=== PATIENT | male | born 1950 | race Caucasian/White ===

== ENCOUNTER 2017-04-13 15:13 | Observation (INO) | payer OTHER ==
[~2017-04-13] VITALS: Ht 180.3 cm; Wt 104.3 kg
[2017-04-13 15:31] LABS: HEMOGLOBIN 16.3 g/dL (14.1-18.0); LYMPH # 1.4 K/mm3 (0.7-4.5); LYMPH % 20.9 % (10-50)
[2017-04-13 15:54] LABS: BUN 18 mg/dL (7-18)
[2017-04-13 15:56] LABS: GFR (ESTIMATED) 67 ML/MIN (>60)
[2017-04-13 17:17] VITALS: BP 148/91
[2017-04-13] MEDS ORDERED: AMLODIPINE10 MG PO (18:11)
[2017-04-13] MEDS ORDERED: METOPROLOL TAR100 MG PO (18:12)
[2017-04-13] MEDS ORDERED: LOSARTAN POTAS100 MG PO (18:13)
[2017-04-13] MEDS ORDERED: OMEPRAZOLE20 MG PO (18:14)
[2017-04-13 18:33] VITALS: BP 148/91
[2017-04-13 20:21] VITALS: BP 144/90
[2017-04-13 20:36] VITALS: BP 144/90
--- NOTE | 2017-04-13 20:51 | HISTORY AND PHYSICAL REPORT ---
Demographics: Admit date: 04/13/17 Chief complaint: chest pressure and shortness of breath PRIMARY DIAGNOSIS: CHEST PAIN Allergies: Coded Allergies: Penicillins (I-RASH 04/13/17) History of present illness: History of present illness: 66 year old male with a history of HTN and GERD was seen today in internal medicine clinic for a 2 week history of lower chest/epigastric pressure and shortness of breath. Patient reports symptoms were intermittent until one week ago. Since that time he has had constant pressure in his epigastric region that is accompanied by shortness of breath. He further reports it feels like "my throat closes off sometimes." He denies any exertional correlation. He walks two miles every day and spends 30 minutes each night riding a bike. Symptoms do not increase during his exercise. He states acid reflux has been well controlled on medication that he has taken for over 20 years. He denies any GI symptoms. He can not identify any aggravating or alleviating factors. H/O cholecystecomy several years ago. Previous smoker, quit 15 years ago. Patient was direct admitted by Dr. Dupree to acute care with telemetry for cardiology consult and further evaluation. Past medical history: Family HX Diabetes No CAD No Hypertension Yes Hyperlipidemia No Cancer Yes TB No Immunization HX DT/Tetanus 1-4 Years Ago Flu 2012-FSN Pneumonia Received In Past Rec'd 2014 TB Test in last year No General Angina: No DC: No Hypertension? Yes Hyperlipidemia? No CHF? No COPD? No Asthma? No Hernia? No CVA? No Seizures? No Diabetes? No UTI? No Stones? No GB Disease: Yes Nephritic Syndrome? No Hepatitis? No Sickle Cell Disease? No Cataracts? No Glaucoma? No MRSA? No HIV? No TB? No Cancer? No Past Surgical HX Previous Surgery?Y GALLBLADDER Back Surgery WISDOM TEETH T&A RT.KNEE MENISCUS REPAIR CATARACT SURGERY Current home meds: Reported Medications Amlodipine Besylate (Amlodipine) 10 MG PO DAILY Metoprolol Tartrate (Metoprolol 100MG) 100 MG PO BID Losartan Potassium (Losartan 100MG) 100 MG PO DAILY Omeprazole (Omeprazole 20MG) 20 MG PO DAILY Social Hx: Smoking HX Are you/the child exposed to second-hand smoke: No Alcohol Alcohol: No Hx of Drug Use Drug Use? No Patient's support system is good Review of systems: Constitutional No: no symptoms reported. Eyes No: no symptoms reported. Ears, Nose, Mouth, Throat No no symptoms reported Respiratory No: no symptoms reported. Cardiovascular see HPI Gastrointestinal/Abdominal see HPI Genitourinary No: no symptoms reported. Musculoskeletal No: no symptoms reported. Skin No: no symptoms reported. Neurological No: see HPI, no symptoms reported, headache, numbness, tingling, tremors, weakness, parasthesia, seizure disorder. Psychiatric No: no symptoms reported. Exam: Lab data for last 24 hours: Laboratory Tests 04/13/171954: Creatine Kinase 143, CK-MB (CK-2) Rel Index 2.9, CK and CKMB Interp 4.2 H, Troponin I < 0.02 04/13/17 1515: Sodium 140, Potassium 3.9, Chloride 107, Carbon Dioxide 23, BUN 18, Creatinine 1.1, Estimated GFR (MDRD) 67, Glucose 167 H, Calcium 9.1, Creatine Kinase 177, CK-MB (CK-2) Rel Index 3.1, CK and CKMB Interp 5.4 H, Troponin I < 0.02, WBC 6.5, RBC 5.12, Hgb 16.3, Hct 47.1, MCV 92.0, RDW 13.0, Plt Count 199, MPV 7.5, Gran % 70.6, Gran # 4.6, Lymphocytes % 20.9, Monocytes % 4.1, Eosinophils % 3.5, Basophils % 0.8, Lymphocytes # 1.4, Monocytes # 0.3, Eosinophils # 0.2, Basophils # 0.1, PUBS MCHC 34.7, MCH 31.9 H Admission vital signs: 1ST Vital Signs Result Date Time Pulse Ox 95 04/13 1717 B/P 148/91 04/13 1717 O2 Delivery ROOM AIR 04/13 1717 Temp 97.5 04/13 1717 Pulse 94 04/13 1717 Resp 18 04/13 1717 Exam General appearance: normal appearance, alert, active, awake Eyes: anicteric ENT: mucous membranes moist Neck: normal inspection, non-tender, no carotid bruit, no JVD Cardiovascular: regular rate & rhythm, no murmur, normal peripheral pulses, trace LE edema Respiratory: aerating well, clear to auscultation, chest non-tender, good air movement ABD: non-distended, normal bowel sounds, no rebound, soft, no tenderness, no guarding, no organomegaly Genitourinary: normal voiding & quantity, no dysuria Extremities: moves all Musculoskeletal: equal muscle strength Skin: dry, intact, normal color Neuro: bar gauger and lubricator tender II-XII nml as tested, intact, no deficit, normal mood/affect, oriented, speech clear Plan: Problem List 1. Chest pressure 2. Shortness of breath 3. Hyperglycemia Plan: Admit to acute care with telemetry. Serial enzymes and EKG's. Consult cardiology. Glucose noted at 167, will check fasting lipid and HA1C in the am. at 8386
[2017-04-13 23:47] VITALS: BP 154/83
[2017-04-14 04:00] VITALS: BP 113/69
--- NOTE | 2017-04-14 05:43 | RADIOLOGY REPORT PS360 ---
CHEST(2 VIEWS-NOT PORTABLE) HISTORY: Sternal or substernal pain, pain at the level of the xiphoid CHEST/EPIGASTRIC PAIN ,SOA ORDERING PHYSICIAN: Pedro Johnson MD PATIENT AGE: 66 years COMPARISON: 04/14/2013 FINDINGS: Unremarkable cardiovascular structures. No lobar consolidation or collapse. Mild hyperinflation. Increased density is present over the left first rib anteriorly probably due to bony hypertrophy having a similar appearance on 04/14/2013. Degenerative changes are present in the thoracic spine. This xyphoid and sternum are not well demonstrated on this exam. IMPRESSION: 1. No acute finding. 2. Thoracic spondylosis
--- NOTE | 2017-04-14 07:21 | PHARMACY CLINIC NOTE ---
See Addendum Patient Demographics Patient Demographics Admission date: 04/13/17 Date: 04/14/17 Time: 720 Allergies Coded Allergies: Penicillins (I-RASH 04/13/17) HEIGHT- FT: 5 IN: 11.00 K.328 VTE General Information Labs: Laboratory Tests 04/13 1515 Hematology Hgb (14.1 - 18.0 g/dL) 16.3 Hct (42.0 - 52.0 %) 47.1 Plt Count (142 - 424 K/mm3) 199 Disclaimer The following section includes nursing documentation that has been pulled in for pharmacy review. Clinical trial participant? No VTE prophylaxis [id number] VTE prophylaxis ordered? Yes Type of prophylaxis/treatment: ICD at 0721
[2017-04-14 07:23] VITALS: BP 127/77
[2017-04-14 07:31] LABS: LYMPH # 1.2 K/mm3 (0.7-4.5); LYMPH % 25.5 % (10-50)
[2017-04-14 07:40] LABS: BUN 16 mg/dL (7-18)
[2017-04-14 07:44] LABS: GFR (ESTIMATED) 85 ML/MIN (>60)
--- NOTE | 2017-04-14 07:47 | ACUTE CARE PROGRESS NOTE (QUA) ---
Progress Notes Subjective Date 04/14/17 Time 0747 Note Overall patient feels well. No complaints. Heart rate regular, lungs clear, abdomen soft, alert. Oriented 3. Objective Findings Last VS-Temp:98.2 B/P:127/77 Pulse:76 Resp:18 SaO2:92 ROOM AIR Last weight lbs:230 oz:0 K.328 Method:Floor Scales Assessment/Plan Problem List 1. Chest pressure 2. Shortness of breath 3. Hyperglycemia Patient condition Improving Plan: check fasting glucose this morning. Cardiac enzymes negative. Low suspicion for cardiac disease. This inpt stay is expected to cross 2 MNs from start of care No at 0747
--- NOTE | 2017-04-14 08:21 | CONSULT NOTE ---
See Addendum Standard Demographics Patient Demo Date of Consultation: 04/14/17 Referring Provider: Pedro Johnson MD Reason for Consultation: CHEST PAIN PRIMARY DIAGNOSIS: CHEST PAIN Problem list Problem list: 1. Hypertension 2. Family history of coronary disease in mother who at 52 with a heart attack and history of Parkinson's 3. Remote history of tobacco use, brief History of present illness: History of present illness: 66 year old male with a history of HTN and GERD was seen today in internal medicine clinic for a 2 week history of lower chest/epigastric pressure and shortness of breath. Patient reports symptoms were intermittent until one week ago. Since that time he has had constant pressure in his epigastric region that is accompanied by shortness of breath. He further reports it feels like "my throat closes off sometimes." He denies any exertional correlation. He walks two miles every day and spends 30 minutes each night riding a bike. Symptoms do not increase during his exercise. He states acid reflux has been well controlled on medication that he has taken for over 20 years. He denies any GI symptoms. He can not identify any aggravating or alleviating factors. H/O cholecystecomy several years ago. Previous smoker, quit 15 years ago. Patient was direct admitted by Dr. Dupree to acute care with telemetry for cardiology consult and further evaluation. The above per Dr. Johnson Patient does relate the above symptoms may occasionally get worse with activity. This does not limit his activity such as walking or riding the bike. He does relate some difficulty swallowing food at times. Previous gastrointestinal evaluation was many years ago. Past Medical History: General: Hypertension Yes CVA No Seizures No TB No COPD No Asthma No Diabetes No Angina No [place] No Hyperlipidemia No Urinary No Cancer No Rheumatic H.D. No Ulcers No MRSA No GB Disease Yes Past Surgical HX: Previous Surgery?Y GALLBLADDER Back Surgery WISDOM TEETH T&A RT.KNEE MENISCUS REPAIR CATARACT SURGERY Allergies Coded Allergies: Penicillins (I-RASH 04/13/17) Home medications: Reported Medications Amlodipine Besylate (Amlodipine) 10 MG PO DAILY Metoprolol Tartrate (Metoprolol 100MG) 100 MG PO BID Losartan Potassium (Losartan 100MG) 100 MG PO DAILY Omeprazole (Omeprazole 20MG) 20 MG PO DAILY Current Medications: Current Medications Amlodipine Besylate 10 MG DAILY PO Irbesartan 150 MG DAILY PO Metoprolol Succinate 100 MG DAILY PO Sodium Chloride 10 ML PRN PRN IV Acetaminophen 0 .STK-MED ONE PO (DCr) Nitroglycerin 1 IN Q6 TP Enoxaparin Sodium 100 MG BID SC Pantoprazole Sodium 40 MG QHS PO Acetaminophen 1,000 MG Q6HP PRN PO (CKD) Lorazepam 0.5 MG ONCE ONE PO (DC) Lorazepam 0.5 MG Q6HP PRN PO Morphine Sulfate 1 MG Q2HP PRN IV Nitroglycerin 0.4 MG [id number] PRN SL Promethazine HCl 12.5 MG Q6HP PRN IV Sodium Chloride 1,000 ML .Q25H IV Sodium Chloride 25 ML PRN PRN IV Clopidogrel Bisulfate 75 MG DAILY PO Aspirin 325 MG DAILY PO Immunization HX DT/Tetanus 1-4 Years Flu 2012-FSN Pneumonia RECEIVED IN PAST Rec'd 2014 TB Test in last year No Family history Family HX Family Hx Insignificant No Diabetes No CAD No Hypertension Yes Hyperlipidemia No Cancer Yes TB No Social Hx: Smoking HX Are you/the child exposed to second-hand smoke: No Alcohol Alcohol: No Hx of Drug Use Drug Use? No Patien't marital status is Patient's support system is good Review of systems: Constitutional No: no symptoms reported. Respiratory No: no symptoms reported. Cardiovascular chest pain Gastrointestinal/Abdominal see HPI, other Genitourinary No: no symptoms reported. Musculoskeletal No: no symptoms reported. Neurological No: no symptoms reported. Exam: Last Vital Signs: Vital Signs Result Date Time Pulse Ox 92 04/14 723 B/P 127/77 04/14 723 O2 Delivery ROOM AIR 04/14 723 Temp 98.2 04/14 723 Pulse 76 04/14 723 Resp 18 04/14 723 Exam General appearance: alert, awake, face symmetric, no acute distress Neck: no carotid bruit, no JVD Cardiovascular: regular rate & rhythm, no murmur Respiratory: clear to auscultation, good air movement ABD: soft, mild epigastric tenderness with palpation. Extremities: moves all, no peripheral edema Neuro: alert, intact, oriented Laboratory data: Laboratory Tests 04/14/17619: Hemoglobin A1c 5.4 04/14/17619: Sodium 138, Potassium 3.3 L, Chloride 106, Carbon Dioxide 24, BUN 16, Creatinine 0.9, Estimated Creat Clear 122, Estimated GFR (MDRD) 85, Glucose 114 H, Calcium 8.9, Total Bilirubin 1.5 H, AST 39 H, ALT 41, Alkaline Phosphatase 84, Creatine Kinase 119, CK-MB (CK-2) Rel Index 2.3, CK and CKMB Interp 2.7, Troponin I < 0.02, Total Protein 7.1, Albumin 3.9, Globulin 3.2, Albumin/ Globulin Ratio 1.2, Triglycerides 121, Cholesterol 197, LDL Cholesterol 116.8, VLDL Cholesterol 24.2, HDL Cholesterol 56.0, WBC 4.5 L, RBC 4.71, Hgb 15.0, Hct 43.5, MCV 92.4, RDW 12.9, Plt Count 147, MPV 8.0, Gran % 64.0, Gran # 2.9, Lymphocytes % 25.5, Monocytes % 6.4, Eosinophils % 3.6, Basophils % 0.6, Lymphocytes # 1.2, Monocytes # 0.3, Eosinophils # 0.2, Basophils # 0.0, PUBS MCHC 34.3, MCH 31.7 H 04/13/17 1955: Creatine Kinase 143, CK-MB (CK-2) Rel Index 2.9, CK and CKMB Interp 4.2 H, Troponin I < 0.02 04/13/17 1515: Sodium 140, Potassium 3.9, Chloride 107, Carbon Dioxide 23, BUN 18, Creatinine 1.1, Estimated GFR (MDRD) 67, Glucose 167 H, Calcium 9.1, Creatine Kinase 177, CK-MB (CK-2) Rel Index 3.1, CK and CKMB Interp 5.4 H, Troponin I < 0.02, WBC 6.5, RBC 5.12, Hgb 16.3, Hct 47.1, MCV 92.0, RDW 13.0, Plt Count 199, MPV 7.5, Gran % 70.6, Gran # 4.6, Lymphocytes % 20.9, Monocytes % 4.1, Eosinophils % 3.5, Basophils % 0.8, Lymphocytes # 1.4, Monocytes # 0.3, Eosinophils # 0.2, Basophils # 0.1, PUBS MCHC 34.7, MCH 31.9 H Plan: Assessment: 1. Recurrent chest pain with atypical features in a ALBINO score of one (recurrent chest pain) in setting of hypertension family history of heart disease. Cardiac enzymes normal 3. Electrocardiogram is sinus with nonspecific ST-T abnormalities. Recommend exercise Myoview stress testing today. 2. History of hypertension treated for many years. Recommend echocardiogram to evaluate LEFT ventricular size and function. 3. Hypokalemia, replace potassium today. 4. Gastroesophageal reflux, patient takes [id number] omeprazole. Recommendations: See above. If stress test is normal then could be discharged home for outpatient follow-up. Recommend outpatient gastrointestinal evaluation for history of gastroesophageal reflux disease and recent difficulty swallowing. at 0879 at 1092
[2017-04-14 09:00] VITALS: BP 127/77
[2017-04-14 11:13] VITALS: BP 141/82
--- NOTE | 2017-04-14 14:48 | RADIOLOGY REPORT PS360 ---
S/R CARDIOLITE COMP (EF WM) COMPARISON: None available HISTORY: Chest pain ORDERING PHYSICIAN: Pedro Johnson MD PATIENT AGE: 66 years DOSE: 10.22 mCi technetium Myoview intravenously at rest followed by 30.1 mCi technetium Myoview at stress. The patient exercised8 minutes and 30 seconds achieving a heart rate 170 bpm. Projected heart rate is 133 bpm. Resting blood pressure is 172/93. Stress blood pressure 206/88. FINDINGS: Ejection fraction is calculated to be 68%. No wall motion abnormality is detected. SPECT and polar map images generated. There is fixed decreased activity involving the inferior wall at the heart base. This may be related to thinning in this region or an area of old infarction. No reversible defects are evident. There is septal thinning at the base of the heart as a normal variant IMPRESSION: 1. Normal ejection fraction of 68%. 2. Fixed defect versus involving the inferior wall towards the base of the heart which is of questioned clinical significance and may be related to thinning of the myocardium at this region or due to an old infarction. 3. No reversible defects evident
[2017-04-14 15:28] VITALS: BP 140/84
--- NOTE | 2017-04-14 16:03 | DISCHARGE SUMMARY STANDARD ---
Demographics Admit date: 04/13/17 Discharge date: 04/14/17 History of present illness History of present illness 66 year old male with a history of HTN and GERD was seen today in internal medicine clinic for a 2 week history of lower chest/epigastric pressure and shortness of breath. Patient reports symptoms were intermittent until one week ago. Since that time he has had constant pressure in his epigastric region that is accompanied by shortness of breath. He further reports it feels like "my throat closes off sometimes." He denies any exertional correlation. He walks two miles every day and spends 30 minutes each night riding a bike. Symptoms do not increase during his exercise. He states acid reflux has been well controlled on medication that he has taken for over 20 years. He denies any GI symptoms. He can not identify any aggravating or alleviating factors. H/O cholecystecomy several years ago. Previous smoker, quit 15 years ago. Patient was direct admitted by Dr. Dupree to acute care with telemetry for cardiology consult and further evaluation. Patient does relate the above symptoms may occasionally get worse with activity. This does not limit his activity such as walking or riding the bike. He does relate some difficulty swallowing food at times. Previous gastrointestinal evaluation was many years ago. Hospital Course Hospital Course: Patient was admitted, ruled out for myocardial infarction by enzyme and EKG criteria. Was seen by cardiology today. They recommended nuclear medicine base stress testing. This was done, showed fixed, questionable defect at the base, no significant stigmata of cardiology disease, and patient was discharged home. He' ll resume his regular medications, followup with Dr. Dupree for ongoing workup of this noncardiac pain. Discharge diagnoses Problem List 1. Chest pressure 2. Shortness of breath 3. Hyperglycemia Medications Medications: Discharge meds are as noted. Follow up Follow up in office in: 8 DAYS with: Lino Dupree MD at 1602
[2017-04-14 17:27] VITALS: BP 151/88
--- NOTE | 2017-04-19 08:02 | RADIOLOGY REPORT PS360 ---
PROCEDURE: 2-D M-mode and color Doppler study INDICATIONS FOR THE TEST: Chest pain+ COPD Heart Murmur Tobacco Smokingex Palpitations Fatigue Syncope Edema Hypertension+Diabetes Mellitus Rheumatic Fever SOB YING+Obesity Hyperlipidemia Family History HD+ Additional History GERD PATIENT INFORMATION HEIGHT: 71 WEIGHT:230 GENDER: Male B/P: 148/91 2-D/M-MODE INTERPRETATION: 2-D MEASUREMENTS OBSERVED VALUES IN CMS Right Ventricular Dimension (RVDd) 1.5 Interventricular Septum (Thickness)(IVsd) 1.0 Left Ventricular Internal Dimensions(LVIDd) 4.6 Left Ventricular Posterior Wall (Thickness)(LVPWd) 0.8 Aortic Root 2.7 Aortic Cusp Separation 2.0 Left Atrial Dimensions (LAD) 3.3 2D 1. Left atrium is qualitatively mildly enlarged, left ventricle is normal size, there is no concentric left ventricular hypertrophy, visually estimated ejection fraction 55% with no obvious regional wall motion abnormality. 2. The right atrium and right ventricle are normal size and contractility. 3. The aortic valve is minimally thickened and fibrosed. 4. The mitral and tricuspid valve leaflets are minimally thickened. 5. The pulmonic valve is poorly visualized. 6. No significant pericardial effusion noted. DOPPLER INTERROGATION: Doppler interrogation of the aortic, mitral and tricuspid valvular presence of mild mitral and tricuspid regurgitation, tricuspid regurgitant jet velocity insufficient for calculation of the right ventricular systolic pressure, grade 1 diastolic dysfunction seen without tissue Doppler evidence of raised left atrial pressure. CONCLUSION: 1. Mildly enlarged left atrium, normal left ventricular size, visually estimated ejection fraction 55% with no obvious regional wall motion abnormality, grade 1 diastolic dysfunction seen without tissue Doppler evidence of raised left atrial pressure. 2. Mild mitral and tricuspid regurgitation. 3. No significant pericardial effusion noted.
== END 2017-04-14 17:50 | disposition home or self-care (01) ==
LOC: LAB 15:13 → 2ND 16:33
PROVIDERS: Internal Medicine
DX: R07.9 Chest pain, unspecified (principal); R06.09 Other forms of dyspnea; I10 Essential (primary) hypertension; K21.9 Gastro-esophageal reflux disease without esophagitis
CPT/HCPCS: A9502; G0378

== ENCOUNTER 2017-05-03 12:10 | Day surgery (SDC) | payer OTHER ==
[~2017-05-03 12:10] MED LIST: AMLODIPINE10 MG PO; LOSARTAN POTAS100 MG PO; METOPROLOL TAR100 MG PO; OMEPRAZOLE20 MG PO
--- NOTE | 2017-05-03 14:00 | Operative Note ---
Upper GI Endoscopy Procedure date: 05/03/17 Date of : 54 Procedure:Upper GI Endoscopy Esophagogastroduodenoscopy with cold biopsies Indications: Mr. Reina is a 66-year-old gentleman with dyspepsia. He reports epigastric abdominal pain that radiates into the back. He reports a lump below the xiphoid process. He has had some bloating and early satiety. His heartburn and reflux/ gastroesophageal reflux disease is controlled with omeprazole for 1-2 decades. He does have some globus sensation with frequent clearance of the throat, hoarseness but no dysphagia. He reports no belching. He did have a normal colonoscopy in 2012. Performing Provider: Noel Adam MD Referring Provider: Lino Dupree M.D. Sedation: Fentanyl 150 mg IV/Versed 6 mg IV Procedure: Prior to the procedure, a history and physical exam was performed, and patients medications and allergies were reviewed. The risks and benefits of the procedure and the sedation options and risks were discussed with the patient. All questions were answered and informed consent was obtained. The patient was brought to the procedure room. Patient identification and proposed procedure were verified by the physician and the nurse. The patient was placed in a left lateral decubitus position and the scope was passed under direct vision. Throughout the procedure, the patient's blood pressure, pulse, and oxygen saturations were monitored continuously. The endoscope was introduced through the mouth, and advanced to the second part of duodenum. The upper GI endoscopy was accomplished without difficulty. The patient tolerated the procedure well. Findings: The scope was passed directly into the upper esophagus and advanced to the third portion of the duodenum. The post bulbar duodenum and duodenal bulb were normal with normal mucosa and conniventes. The scope was withdrawn through a normal duodenal bulb and pylorus into the stomach. There was moderate bile reflux with mild linear erythema of the antrum and body. The remainder of the antrum, body and fundus of the stomach were grossly normal. Upon retroflexion there was a very small sliding 1-2 cm hiatal hernia. 2 biopsies were taken in the antrum and along the lesser curvature for histology. The scope was then withdrawn into the esophagus. There was a serrated Z line and biopsies were taken from a small island/tongue of salmon colored mucosa to rule out intestinal metaplasia. The remainder of the esophageal mucosa was normal. There was some mild esophageal dysmotility with cricopharyngeal spasm. Immediate complications: None EBL (ml): 0 Impression: 1. Nonerosive gastroesophageal reflux disease with mild esophageal dysmotility and cricopharyngeal spasm with small 1-2 cm sliding hiatal hernia 2. 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 We will discuss additional dietary measures and treatment options. I will follow-up the biopsies. at 2320
[2017-05-03 17:23] VITALS: BP 91/65
== END 2017-05-03 14:32 | disposition home or self-care (01) ==
LOC: SDC 12:10
PROVIDERS: Internal Medicine Gastroenterology
PROC: 0DB78ZX Excision of Stomach, Pylorus, Via Natural or Artificial Opening Endoscopic, Diagnostic (ICD-10-PCS; 2017-05-03)
PROC: 0DB58ZX Excision of Esophagus, Via Natural or Artificial Opening Endoscopic, Diagnostic (ICD-10-PCS; 2017-05-03)
PROC: 0DB68ZX Excision of Stomach, Via Natural or Artificial Opening Endoscopic, Diagnostic (ICD-10-PCS; principal; 2017-05-03 13:00)
DX: K30 Functional dyspepsia (principal); K21.9 Gastro-esophageal reflux disease without esophagitis; K44.9 Diaphragmatic hernia without obstruction or gangrene; K22.4 Dyskinesia of esophagus; J39.2 Other diseases of pharynx; K29.50 Unspecified chronic gastritis without bleeding; Z79.82 Long term (current) use of aspirin; Z79.899 Other long term (current) drug therapy